=== PATIENT | female | born 1985 | race African-American/Black ===

== ENCOUNTER 2017-03-16 20:04 | Emergency (ER) | payer BC, MEDICAID ==
--- NOTE | 2017-03-16 21:53 | RAD ---
Indication: 19 weeks 0 days estimated gestation. Pelvic pain. Comparison: No relevant prior exams available on the [facility] [place] for comparison. Technique: Transabdominal obstetrical ultrasound. REPORT: Single intrauterine fetus is in breech presentation. Spontaneous motion and cardiac activity present. heart rate: 146 bpm. The volume of amniotic fluid is qualitatively normal. The cervical length is 5.0 cm. Unremarkable anterior placenta without evidence for previa. Mean BPD: 4.40 cm corresponding with 19 weeks 3 days Mean HC: 16.43 cm corresponding with 19 weeks 2 days Mean AC: 15.02 cm corresponding with 20 weeks 2 days Mean FL: 2.83 cm corresponding with 18 weeks 5 days Composite gestational age: 19 weeks 3 days HC / AC ratio: 1.09 weight: 295 g. +/- 43 g Unremarkable 4 chamber heart view on static and cine loop images. IMPRESSION: Limited obstetrical ultrasound documenting a cooper intrauterine gestation in breech presentation with estimated gestational age based on this exam of 19 weeks 3 days. Dating should be based on the earliest obtained ultrasound. There are no relevant prior exams on the [facility]. Normal movement and cardiac activity. Negative for placenta previa. Closed cervix. Qualitatively normal amniotic fluid volume.
[2017-03-16 22:26] LABS: Urine Bacteria 1+ (Absent); Urine Bilirubin Negative (Negative); Urine Glucose 3+(>=500 mg/dL) (Negative); Urine Nitrite Negative (Negative)
--- NOTE | 2017-03-16 23:24 | ED ---
Natividad Huerta Edward, scribed for Jude Cleveland MD on 03/16/17 at 2100 . Abdominal Pain/Female - HPI Summary HPI Summary: 31 y/o female presents to ED with lower ABD pain. The pain came on suddenly last night, waking the patient up in the middle of the night. Pain is characterized as a tightness in the lower ABD. Patient states that here are no aggravating factors. Associated sx: stress. The patient is 19 weeks and is due on 08/10/17. PMHx G/P/A - . - History of Current Complaint Chief Complaint: EDAbdPain Stated Complaint: ABD PAIN Time Seen by Provider: 03/16/17 20:45 Hx Obtained From: Patient ?: Yes Onset/Duration: Sudden Onset Timing: Constant Severity Initially: Moderate Severity Currently: Moderate Pain Intensity: 7 Pain Scale Used: 0-10 Numeric Location: Suprapubic Character: Other: - Tightness Aggravating Factor(s): Nothing Associated Signs and Symptoms: Positive: Other: - Stress Allergies/Adverse Reactions: Allergies Allergy/AdvReac Type Severity Reaction Status Date / Time Penicillins [PCN] Allergy Unknown Verified 03/16/17 20:06 Reaction Details PMH/Surg Hx/FS Hx/Imm Hx Previously Healthy: No Endocrine/Hematology History: Reports: Hx Diabetes - Type I , Hx Anemia Respiratory History: Reports: Hx Asthma Musculoskeletal History: Reports: Hx Arthritis Psychiatric History: Reports: Hx Anxiety, Hx Depression Infectious Disease History: No Infectious Disease History: Denies: Traveled Outside the [place] in Last 30 Days - Family History Known Family History: Positive: Other - Mother - thyroid disease - Social History Lives: With Family - Mother Alcohol Use: None Hx Substance Use: No Substance Use Type: Reports: None Hx Tobacco Use: No Smoking Status (MU): Never Smoked Tobacco Review of Systems Constitutional: Negative Eyes: Negative ENT: Negative Cardiovascular: Negative Respiratory: Negative Positive: Abdominal Pain Genitourinary: Negative Musculoskeletal: Negative Skin: Negative Neurological: Negative Psychological: Other - Stressed All Other Systems Reviewed And Are Negative: Yes Physical Exam Triage Information Reviewed: Yes Vital Signs On Initial Exam: Initial Vitals Temp Pulse Resp BP Pulse Ox 98.3 F 96 18 129/79 99 03/16/17 20:06 03/16/17 20:06 03/16/17 20:06 03/16/17 20:06 03/16/17 20:06 Vital Signs Reviewed: Yes Appearance: Positive: Well-Appearing, No Pain Distress Skin: Positive: Warm, Skin Color Reflects Adequate Perfusion, Dry Head/Face: Positive: Normal Head/Face Inspection Eyes: Positive: Normal ENT: Positive: Normal ENT inspection Neck: Positive: Supple, Nontender Respiratory/Lung Sounds: Positive: Clear to Auscultation, Breath Sounds Present Cardiovascular: Positive: RRR Abdomen Description: Positive: Soft, Other: - Mildly tender @ suprapubic area. Bowel Sounds: Positive: Present Musculoskeletal: Positive: Normal Neurological: Positive: Normal Psychiatric: Positive: Normal, Affect/Mood Appropriate Diagnostics - Vital Signs Vital Signs Temp Pulse Resp BP Pulse Ox 03/16/17 20:06 98.3 F 96 18 129/79 99 - Laboratory Lab Results: Lab Results 03/16/17 Range/Units 22:07 Urine Color Yellow Urine Appearance Cloudy Urine pH 6.0 (5-9) Ur Specific [place] 1.013 (1.010-1.030) Urine Protein Negative (Negative) Urine Ketones Negative (Negative) Urine Blood Negative (Negative) Urine Nitrate Negative (Negative) Urine Bilirubin Negative (Negative) Urine Urobilinogen Negative (Negative) Ur Leukocyte Esterase Trace H (Negative) Urine WBC (Auto) Trace(0-5/hpf) (Absent) Urine RBC (Auto) Trace(0-2/hpf) (Absent) Ur Squamous Epith Cells Present H (Absent) Urine Bacteria 1+ H (Absent) Urine Glucose 3+(>=500 mg/dl) H (Negative) Lab Statement: Any lab studies that have been ordered have been reviewed, and results considered in the medical decision making process. - Ultrasound No standard instances Ultrasound Interpretation: Positive (See Comments) - Limited obstetrical ultrasound documenting a cooper intrauterine gestation in breech presentation with estimated gestational age based on this exam of 19 weeks 3 days. Dating should be based on the earliest obtained ultrasound. There are no relevant prior exams on the [facility] PACS. Normal movement and cardiac activity. Negative for placenta previa. Closed cervix. Qualitatively normal amniotic fluid volume. Ultrasound Interpretation Completed By: Radiologist Abdominal Pain Fem Course/Dx - Course Course Of Treatment: Ms. Barber presented in stable condition with a C/O low abdominal pain. She had a similar pain before losing a previous in the 2nd trimester. U/S of the fetus was WNL. Abruption could of course be missed but her abdomen is not hard and her pain is mild. Her urine has some bacteria and i will treat that. Her labs are still pending. - Diagnoses Provider Diagnoses: UTI (urinary tract infection), Abdominal pain affecting Discharge - Discharge Plan Condition: Stable Disposition: OTHER Discharge Disposition Comment: Change of shift Patient Education Materials: (ED), Abdominal Pain (ED) Referrals: Cedrick Obando MD [Medical Doctor] - 3 Days (Please follow up in 2-3 days.) The documentation as recorded by the Naitvidad rose Edward accurately reflects the service I personally performed and the decisions made by me, Jude Cleveland MD.
[2017-03-16 23:27] LABS: Hematocrit 35 % (35-47); Hemoglobin 11.7 g/dl (12.0-16.0); Mean Corpuscular HGB Conc 34 g/dl (31-36); Mean Corpuscular Hemoglobin 29 pg (27-31); Mean Corpuscular Volume 85 fL (80-97); Mean Platelet Volume 8 um3 (7.4-10.4); Red Blood Count 4.09 10^6/ul (4.0-5.4); Red Cell Distribution Width 14 % (10.5-15); White Blood Count 9.5 10^3/ul (3.5-10.8)
[2017-03-16] MEDS ORDERED: Nitrofurantoin Macrocrystals* 50 MG CAP PO ONE (23:27)
[2017-03-16 23:38] LABS: Albumin 3.2 g/dL (3.2-5.2); BUN/Creatinine Ratio 12.2 (8-20); C Reactive Protein 12.29 mg/L (< 5.00); Calcium 9.7 mg/dL (8.6-10.3); EGFR African American 235.9 (>60); EGFR Non-African American 183.4 (>60); Globulin 3.7 g/dL (2-4); Potassium 3.4 mmol/L (3.5-5.0); Total Bilirubin 0.2 mg/dL (0.2-1.0); Total Protein 6.9 g/dL (6.4-8.9)
[2017-03-17 01:28] VITALS: BP 124/74
== END 2017-03-17 01:30 ==
LOC: ED 20:04
DX: N39.0 Urinary tract infection, site not specified (principal); O26.90 Pregnancy related conditions, unspecified, unspecified trimester; R10.9 Unspecified abdominal pain; Z3A.00 Weeks of gestation of pregnancy not specified
CPT/HCPCS: 36415; 76815; 80053; 81003; 81015; 85025; 86140; 86703; 87086; 99283; A9270-GY

== ENCOUNTER 2017-06-15 16:28 | Emergency (ER) | payer BC ==
[2017-06-15 21:57] LABS: Hematocrit 36 % (35-47); Hemoglobin 12.2 g/dl (12.0-16.0); Mean Corpuscular HGB Conc 34 g/dl (31-36); Mean Corpuscular Hemoglobin 29 pg (27-31); Mean Corpuscular Volume 84 fL (80-97); Mean Platelet Volume 7 um3 (7.4-10.4); Red Blood Count 4.26 10^6/ul (4.0-5.4); Red Cell Distribution Width 14 % (10.5-15); White Blood Count 9.4 10^3/ul (3.5-10.8)
[2017-06-15 22:09] LABS: Albumin 3.3 g/dL (3.2-5.2); BUN/Creatinine Ratio 13.6 (8-20); Calcium 9.5 mg/dL (8.6-10.3); EGFR African American 217.4 (>60); EGFR Non-African American 169.1 (>60); Globulin 4.2 g/dL (2-4); Potassium 3.5 mmol/L (3.5-5.0); Total Bilirubin 0.6 mg/dL (0.2-1.0); Total Protein 7.5 g/dL (6.4-8.9)
[2017-06-15] MEDS ORDERED: Albuterol (2.5 MG) 0.5 % CONC 2.5 MG/0.5 ML NEB.SOLN (ICU and ED only) INH ONE (22:55)
[2017-06-16] MEDS ORDERED: Cyclobenzaprine TAB* 10 MG PO ONE (00:24)
[2017-06-16] MEDS ORDERED: Albuterol HFA INHALER* 8 gm MDI INH ONE (00:28)
[2017-06-16 00:59] VITALS: BP 128/74
--- NOTE | 2017-06-16 04:00 | ED ---
Danyell Huerta Rebecca, scribed for Cristina Guillen MD on 06/15/17 at 2153 . - HPI Summary HPI Summary: Pt is a 31 y/o F who is 32 weeks who presents to the ED c/o SOB and diffuse myalgias, particularly in the bilateral feet and LE. Sx have been present for multiple weeks, intermittent since onset and worsening in the last 2 -3 days. Pain is currently moderate, ranked 5/10. SOB is characterized as dyspnea at exertion. Sx are aggravated by exertion, alleviated by nothing, unchanged by deep breaths. Additionally c/o [place] Kitchen contractions and lumbar back pain when laying down. Denies cough, fever, chills, CP, calf tenderness and dysuria. A0 and she typically carries her pregnancies to full term. No recent travel. Pt reports that she works on her feet. PMHx asthma - current SOB is not similar to prior asthma exacerbations. No FHx CAD, PE. - History of Current Complaint Chief Complaint: EDGeneral Stated Complaint: SOB/32 WKS Time Seen by Provider: 06/15/17 20:32 Hx Obtained From: Patient Chief Complaint: Pain - Myalgias - particularly LE, Other: - SOB Onset/Duration: Still Present, Worse Since - 2-3 days ago Timing: Intermittent Current Severity: Moderate Pain Intensity: 5 Location of Pain: Other: - Bilateral foot and LE Aggravating Factors: Other: - Exertion Alleviating Factors: Nothing Associated Signs and Symptoms: Positive: Back Pain - Lumbar, Other: - SOB, [place] kitchen contractions. Negative: Fever - Allergies/Home Medications Allergies/Adverse Reactions: Allergies Allergy/AdvReac Type Severity Reaction Status Date / Time Penicillins [PCN] Allergy Unknown Verified 03/16/17 20:06 Reaction Details PMH/Surg Hx/FS Hx/Imm Hx Endocrine/Hematology History: Reports: Hx Diabetes - Type I , Hx Anemia Respiratory History: Reports: Hx Asthma Musculoskeletal History: Reports: Hx Arthritis Psychiatric History: Reports: Hx Anxiety, Hx Depression - Immunization History Date of Tetanus Vaccine: utd Date of Influenza Vaccine: utd Infectious Disease History: Yes Infectious Disease History: Denies: Traveled Outside the [place] in Last 30 Days - Family History Known Family History: Positive: Other - Mother - thyroid disease; No FHx PE Negative: Cardiac Disease - Social History Alcohol Use: None Alcohol Amount: NONE SINCE Hx Substance Use: No Substance Use Type: Reports: None Hx Tobacco Use: No Smoking Status (MU): Never Smoked Tobacco Review of Systems Negative: Fever, Chills Negative: Chest Pain Positive: Shortness Of Breath. Negative: Cough Positive: Other - [place] Kitchen contractions Negative: dysuria Positive: Myalgia - Diffuse - particularly in the bilateral feet and LE, Other - Lumbar back pain NEGATIVE: calf tenderness All Other Systems Reviewed And Are Negative: Yes Physical Exam - Summary Physical Exam Summary: General: Well appearing, no pain distress Skin: Warm, Skin Color Reflects Adequate Perfusion, Dry Eyes: EOMI, RADHA ENT: Pharynx normal, TMs normal Neck: Supple, nontender Respiratory: CTA, breath sounds present, no rhonchi, no wheezes, no rales Cardiovascular: RRR, no murmur, no rub, no gallop Abdomen: Soft, nontender, She is and it is possible to feel the fetus moving, no guarding, no rebound Bowel: Present Musculoskeletal: EUNICE, No edema, Tenderness over her SI joint Neuro: Sensory/motor intact, A&Ox3, CN intact 2-12 Psych: Affect/mood appropriate - Physical Exam Triage Information Reviewed: Yes Vital Signs Reviewed: Yes Diagnostics - Vital Signs Vital Signs Temp Pulse Resp BP Pulse Ox 06/15/17 20:21 97.9 F 92 16 132/77 100 06/15/17 16:32 97.4 F 103 20 130/77 100 - Laboratory Lab Results: Lab Results 06/15/17 06/15/17 06/15/17 Range/Units 21:30 21:30 21:30 WBC 9.4 (3.5-10.8) 10^3/ul RBC 4.26 (4.0-5.4) 10^6/ul Hgb 12.2 (12.0-16.0) g/dl Hct 36 (35-47) % MCV 84 (80-97) fL MCH 29 (27-31) pg MCHC 34 (31-36) g/dl RDW 14 (10.5-15) % Plt Count 367 (150-450) 10^3/ul MPV 7 L (7.4-10.4) um3 Neut % (Auto) 66.0 (38-83) % Lymph % (Auto) 24.4 L (25-47) % [place] % (Auto) 8.6 (1-9) % Eos % (Auto) 0.6 (0-6) % Baso % (Auto) 0.4 (0-2) % Absolute Neuts (auto) 6.2 (1.5-7.7) 10^3/ul Absolute Lymphs (auto) 2.3 (1.0-4.8) 10^3/ul Absolute Monos (auto) 0.8 (0-0.8) 10^3/ul Absolute Eos (auto) 0.1 (0-0.6) 10^3/ul Absolute Basos (auto) 0 (0-0.2) 10^3/ul Absolute Nucleated RBC 0 10^3/ul Nucleated RBC % 0 Sodium 132 L (133-145) mmol/L Potassium 3.5 (3.5-5.0) mmol/L Chloride 100 L (101-111) mmol/L Carbon Dioxide 21 L (22-32) mmol/L Anion Gap 11 (2-11) mmol/L BUN 6 (6-24) mg/dL Creatinine 0.44 L (0.51-0.95) mg/dL Est GFR ( Amer) 217.4 (>60) Est GFR (Non-Af Amer) 169.1 (>60) BUN/Creatinine Ratio 13.6 (8-20) Glucose 241 H (70-100) mg/dL Lactic Acid (0.5-2.0) mmol/L Calcium 9.5 (8.6-10.3) mg/dL Total Bilirubin 0.60 (0.2-1.0) mg/dL AST 11 L (13-39) U/L ALT 11 (7-52) U/L Alkaline Phosphatase 64 (34-104) U/L Troponin I 0.00 (<0.04) ng/mL B-Natriuretic Peptide 19 ( - 100) pg/mL Total Protein 7.5 (6.4-8.9) g/dL Albumin 3.3 (3.2-5.2) g/dL Globulin 4.2 H (2-4) g/dL Albumin/Globulin Ratio 0.8 L (1-3) 06/15/ Range/Units 21:30 WBC (3.5-10.8) 10^3/ul RBC (4.0-5.4) 10^6/ul Hgb (12.0-16.0) g/dl Hct (35-47) % MCV (80-97) fL MCH (27-31) pg MCHC (31-36) g/dl RDW (10.5-15) % Plt Count (150-450) 10^3/ul MPV (7.4-10.4) um3 Neut % (Auto) (38-83) % Lymph % (Auto) (25-47) % [place] % (Auto) (1-9) % Eos % (Auto) (0-6) % Baso % (Auto) (0-2) % Absolute Neuts (auto) (1.5-7.7) 10^3/ul Absolute Lymphs (auto) (1.0-4.8) 10^3/ul Absolute Monos (auto) (0-0.8) 10^3/ul Absolute Eos (auto) (0-0.6) 10^3/ul Absolute Basos (auto) (0-0.2) 10^3/ul Absolute Nucleated RBC 10^3/ul Nucleated RBC % Sodium (133-145) mmol/L Potassium (3.5-5.0) mmol/L Chloride (101-111) mmol/L Carbon Dioxide (22-32) mmol/L Anion Gap (2-11) mmol/L BUN (6-24) mg/dL Creatinine (0.51-0.95) mg/dL Est GFR ( Amer) (>60) Est GFR (Non-Af Amer) (>60) BUN/Creatinine Ratio (8-20) Glucose (70-100) mg/dL Lactic Acid 1.9 (0.5-2.0) mmol/L Calcium (8.6-10.3) mg/dL Total Bilirubin (0.2-1.0) mg/dL AST (13-39) U/L ALT (7-52) U/L Alkaline Phosphatase (34-104) U/L Troponin I (<0.04) ng/mL B-Natriuretic Peptide ( - 100) pg/mL Total Protein (6.4-8.9) g/dL Albumin (3.2-5.2) g/dL Globulin (2-4) g/dL Albumin/Globulin Ratio (1-3) Result Diagrams: 06/15/17 21:30 06/15/17 21:30 Lab Statement: Any lab studies that have been ordered have been reviewed, and results considered in the medical decision making process. - EKG 2146 Cardiac Rate: NL - 98 bpm EKG Rhythm: Sinus Rhythm ST Segment: Normal Re-Evaluation - Re-Evaluation First Eval Re-Evaluation Time: 00:22 Comment: The nebulizer did not improve sx much. Discussed exercises for SI joint pain and a work note. Course/Dx - Course Course Of Treatment: pt with pubic symphisis pain during started on a muscle relaxer and given exercises to improve the discomfort - Diagnoses Provider Diagnoses: SI (sacroiliac) joint dysfunction, Asthma Discharge - Discharge Plan Condition: Stable Disposition: HOME Prescriptions: Cyclobenzaprine TAB* [Flexeril 10 MG TAB*] 10 mg PO TID PRN #30 tab PRN Reason: Spasms Patient Education Materials: Lower Back Exercises (ED), Asthma (ED) Forms: *Gen. Provider Communication, *Work Release Referrals: Non Staff,Doctor [Primary Care Provider] - The documentation as recorded by the Danyell rose Rebecca accurately reflects the service I personally performed and the decisions made by me, Cristina Guillen MD.
== END 2017-06-16 00:57 | disposition home or self-care (01) ==
LOC: ED 16:28
DX: M53.3 Sacrococcygeal disorders, not elsewhere classified (principal); J45.909 Unspecified asthma, uncomplicated; O47.03 False labor before 37 completed weeks of gestation, third trimester; M54.5 Low back pain; R06.02 Shortness of breath; Z3A.32 32 weeks gestation of pregnancy
CPT/HCPCS: 36415; 80053; 83605; 83880; 84484; 85025; 87040; 93005; 99284; A9270-GY; J7611